=== PATIENT | male | born 1940 | race Two or more races ===

== ENCOUNTER 2024-09-03 12:29 | Inpatient (IN) | payer OTHER ==
[~2024-09-03] VITALS: Ht 167.6 cm; Wt 54.0 kg
[~2024-09-03 12:29] MED LIST: ACET-66 PO; CEPH-558 PO; DIVA-85 PO; GABA-1181 PO; HYDR25TA84 PO; PANT-31 PO; RISP1TAB48 PO; TRAZ-257 PO
[2024-09-03] MEDS ORDERED: NALOXONE HCL 1 MG/ML 2 ML SYRINGE ONE (12:37)
[2024-09-03 12:51] LABS: BASOPHILS % (AUTO) 0.2 % (0.0-2.0); EOSINOPHILS % (AUTO) 0.8 % (1.0-6.0); HEMATOCRIT 31.6 % (41-53); HEMOGLOBIN 10.5 g/dL (13.5-17.5); LYMPHOCYTES # (AUTO) 0.5 K/uL (1.0-4.8); LYMPHOCYTES % (AUTO) 14.3 % (22.0-44.0); MEAN CORPUSCULAR HGB CONC 33.1 G/dL (31.0-37.0); MEAN CORPUSCULAR VOLUME 94 fL (80-100); MONOCYTES # (AUTO) 0.2 K/uL (0.1-1.0); MONOCYTES % (AUTO) 6.6 % (2.0-9.0); NEUTROPHILS # (AUTO) 2.6 K/uL (1.8-7.7); NEUTROPHILS % (AUTO) 78.1 % (40.0-70.0); PLATELET COUNT (AUTO) 159 K/uL (150-450); RED BLOOD CELL COUNT(AUTO) 3.37 MIL/uL (4.50-5.90); RED CELL DISTRIBUTION WIDTH 22.9 % (11.5-14.5); WHITE BLOOD COUNT (AUTO) 3.3 K/uL (4.5-11.0)
[2024-09-03 13:00] LABS: ANION GAP 5 mmol/L (8-16); CALCIUM, TOTAL 8.7 mg/dL (8.8-10.5); CARBON DIOXIDE 32 mmol/L (22-29); CHLORIDE 110 mmol/L (98-107); CREATININE 0.95 mg/dL (0.60-1.30); GLOMERULAR FILTR. RATE CALC > 60 mL/min (>60); GLUCOSE,RANDOM 178 mg/dL (70-110); POTASSIUM 3.7 mmol/L (3.5-5.1); SODIUM SERUM 147 mmol/L (136-145); UREA NITROGEN, BLOOD 25 mg/dL (7-18)
[2024-09-03] MEDS ORDERED: ACETAMINOPHEN 325 MG TABLET PO PRN (13:00)
[2024-09-03] MEDS ORDERED: BISACODYL 10 MG RECTAL RECTAL SUPPOSITORY PR PRN (13:00)
[2024-09-03 13:03] LABS: PROTHROMBIN TIME 11.4 SEC (9.4-11.6)
[2024-09-03 13:10] LABS: ALANINE AMINOTRANSFERASE 27 U/L (12-78); ALBUMIN 2.6 g/dL (3.4-5.0); ALKALINE PHOSPHATASE 67 U/L (46-116); ASPARTATE AMINOTRANSFERASE 37 U/L (15-37); BILIRUBIN,TOTAL 0.2 mg/dL (0.1-1.0); TOTAL PROTEIN, SERUM 6.2 g/dL (6.4-8.2); TROPONIN I-HIGH SENSITIVITY 22 ng/L (<76)
[2024-09-03 13:13] LABS: RBC MORPHOLOGY COMMENT ABNORMAL RBC MORPH
[2024-09-03] MEDS: SODIUM CHLORIDE 0.45% 1,000 ML IV ONE (14:00)
[2024-09-03 14:08] LABS: APPEARANCE,URINE HAZY (CLEAR); BILIRUBIN,URINE NEGATIVE (NEGATIVE); COLOR,URINE LIGHT YELLOW (YELLOW); GLUCOSE, URINE (UA) NEGATIVE (NEGATIVE); KETONES,URINE NEGATIVE (NEGATIVE); LEUKOCYTE ESTERASE ,URINE LARGE (NEGATIVE); NITRATE,URINE POSITIVE (NEGATIVE); OCCULT BLOOD,URINE LARGE (NEGATIVE); PROTEIN,URINE 30-70 mg/dL (NEGATIVE); UROBILINOGEN,URINE <=1.0 mg/dL (<=1.0)
[2024-09-03 14:27] LABS: ALCOHOL, URINE DRUG SCREEN NEGATIVE (NEGATIVE); AMPHET/METH SCREEN,URINE NEGATIVE (NEGATIVE); BARBITURATE SCREEN, URINE NEGATIVE (NEGATIVE); BENZODIAZEPINES SCREEN,URINE NEGATIVE (NEGATIVE); CANNABINOID SCREEN,URINE NEGATIVE (NEGATIVE); COCAINE SCREEN,URINE NEGATIVE (NEGATIVE); METHADONE SCREEN, URINE NEGATIVE (NEGATIVE); OPIATE SCREEN,URINE NEGATIVE (NEGATIVE); PHENCYCLIDINE SCREEN,URINE NEGATIVE (NEGATIVE)
[2024-09-03 14:42] LABS: BACTERIA,URINE Many /HPF (None Seen); WBC,URINE >100 /HPF (0-5)
[2024-09-03] MEDS: SODIUM CHLORIDE 0.9% 1,850 ML IV ONE (14:51)
[2024-09-03 15:00] VITALS: PULSE 38; RESP 20; O2SAT 93
[2024-09-03] MEDS: CefTRIAXone 1 GM/DEXTROSE 50 ML IV SCH (15:16)
[2024-09-03] MEDS: THIAMINE 100 MG/ML 2 ML VIAL IVP ONE (15:37)
[2024-09-03] MEDS: SODIUM CHLORIDE 0.9% 1,000 ML IV ONE ×2 (16:23→17:14)
[2024-09-03] MEDS: SODIUM CHLORIDE 0.45% 1,000 ML IV SCH (18:26)
[2024-09-03] MEDS: DEXTROSE 50%-WATER 25 GM/50 ML SYRINGE IVP ONE (18:31)
[2024-09-03 18:58] LABS: TROPONIN I-HIGH SENSITIVITY 29 ng/L (<76)
[2024-09-03 19:40] LABS: LACTIC ACID 0.5 mmol/L (0.4-2.0)
[2024-09-03 19:56] LABS: GLUCOMETER DEV NAME(LOC) ER.7; GLUCOSE,POINT OF CARE 57 MG/DL (70-110)
[2024-09-03 19:56] LABS: GLUCOMETER DEV NAME(LOC) ER.7; GLUCOSE,POINT OF CARE 117 MG/DL (70-110)
[2024-09-03 21:00] VITALS: BP 149/84; PULSE 73; RESP 13; TEMP 93.4; O2SAT 100
[2024-09-03] MEDS: ETHYL ALCOHOL 62% ANTISEPTIC NASAL SANITIZER 0.6 ML AMPUL NASAL SCH (22:20)
[2024-09-03] MEDS: CHLORHEXIDINE GLUCONATE 2% TOWELETTE [2'S/6'S] TP SCH (22:20)
[2024-09-04] VITALS: BP 115/60; PULSE 61; RESP 14; TEMP 92.7; O2SAT 99
[2024-09-04 00:41] LABS: GLUCOMETER DEV NAME(LOC) ICUN.5; GLUCOSE,POINT OF CARE 53 MG/DL (70-110)
[2024-09-04] MEDS: DEXTROSE 5%-0.45% SODIUM CHL 1,000 ML IV SCH (00:42)
[2024-09-04] MEDS: DEXTROSE 50%-WATER 25 GM/50 ML SYRINGE IVP PRN (00:42)
[2024-09-04 04:00] VITALS: BP 133/77; PULSE 72; RESP 15; TEMP 95.2; O2SAT 98
[2024-09-04 05:01] LABS: GLUCOMETER DEV NAME(LOC) ICUN.5; GLUCOSE,POINT OF CARE 128 MG/DL (70-110)
[2024-09-04 06:11] LABS: GLUCOMETER DEV NAME(LOC) ICUN.5; GLUCOSE,POINT OF CARE 91 MG/DL (70-110)
[2024-09-04 06:28] LABS: BASOPHILS % (AUTO) 0.2 % (0.0-2.0); EOSINOPHILS % (AUTO) 0.5 % (1.0-6.0); HEMATOCRIT 29.8 % (41-53); HEMOGLOBIN 9.8 g/dL (13.5-17.5); LYMPHOCYTES # (AUTO) 0.3 K/uL (1.0-4.8); LYMPHOCYTES % (AUTO) 8.7 % (22.0-44.0); MEAN CORPUSCULAR HEMOGLOBIN 31.2 pg (26.0-34.0); MEAN CORPUSCULAR HGB CONC 32.9 G/dL (31.0-37.0); MEAN CORPUSCULAR VOLUME 95 fL (80-100); MONOCYTES # (AUTO) 0.3 K/uL (0.1-1.0); MONOCYTES % (AUTO) 8.9 % (2.0-9.0); NEUTROPHILS # (AUTO) 2.5 K/uL (1.8-7.7); NEUTROPHILS % (AUTO) 81.7 % (40.0-70.0); PLATELET COUNT (AUTO) 192 K/uL (150-450); RED BLOOD CELL COUNT(AUTO) 3.15 MIL/uL (4.50-5.90); RED CELL DISTRIBUTION WIDTH 23.2 % (11.5-14.5); WHITE BLOOD COUNT (AUTO) 3.1 K/uL (4.5-11.0)
[2024-09-04 06:44] LABS: ANION GAP 5 mmol/L (8-16); CALCIUM, TOTAL 7.6 mg/dL (8.8-10.5); CARBON DIOXIDE 29 mmol/L (22-29); CHLORIDE 114 mmol/L (98-107); CREATININE 0.91 mg/dL (0.60-1.30); GLOMERULAR FILTR. RATE CALC > 60 mL/min (>60); GLUCOSE,RANDOM 81 mg/dL (70-110); SODIUM SERUM 148 mmol/L (136-145); UREA NITROGEN, BLOOD 16 mg/dL (7-18)
[2024-09-04 06:54] LABS: TROPONIN I-HIGH SENSITIVITY 25 ng/L (<76)
[2024-09-04 08:00] VITALS: BP 131/66; PULSE 73; RESP 14; TEMP 97.1; O2SAT 98
[2024-09-04] MEDS: PANTOPRAZOLE SODIUM 40 MG/VIAL IVP SCH (08:22)
[2024-09-04] MEDS: HEPARIN SODIUM,PORCINE 5,000 UNITS/ML VIAL SQ SCH (08:23)
[2024-09-04 09:23] LABS: RBC MORPHOLOGY COMMENT ABNORMAL RBC MORPH
[2024-09-04 12:00] VITALS: BP 133/66; PULSE 79; RESP 19; TEMP 97.3; O2SAT 96
[2024-09-04 13:56] LABS: GLUCOMETER DEV NAME(LOC) ICUN.5; GLUCOSE,POINT OF CARE 92 MG/DL (70-110)
[2024-09-04] MEDS ORDERED: CefTRIAXone 1 GM/DEXTROSE 50 ML IV SCH (14:45)
[2024-09-04] MEDS: DEXTROSE 5%-WATER 500 ML IV ONE (15:28)
[2024-09-04] MEDS ORDERED: SODIUM CHLORIDE 0.9% 250 ML IV ONE (15:35)
[2024-09-04 16:00] VITALS: BP 121/66; PULSE 70; RESP 14; TEMP 96.4; O2SAT 97
[2024-09-04 20:00] VITALS: BP 155/66; PULSE 75; RESP 22; TEMP 97.8; O2SAT 99
[2024-09-04] MEDS: RisperiDONE 1 MG TABLET PO SCH (21:00)
[2024-09-04] MEDS: DIVALPROEX SODIUM 250 MG ER TABLET PO SCH (21:00)
[2024-09-05] VITALS: BP 142/59; PULSE 70; RESP 15; TEMP 97.2; O2SAT 97
[2024-09-05 04:00] VITALS: BP 134/66; PULSE 62; RESP 15; TEMP 96.7; O2SAT 96
[2024-09-05 06:01] LABS: ANION GAP 7 mmol/L (8-16); CALCIUM, TOTAL 7.7 mg/dL (8.8-10.5); CARBON DIOXIDE 28 mmol/L (22-29); CHLORIDE 110 mmol/L (98-107); CREATININE 1.15 mg/dL (0.60-1.30); GLOMERULAR FILTR. RATE CALC > 60 mL/min (>60); GLUCOSE,RANDOM 73 mg/dL (70-110); SODIUM SERUM 145 mmol/L (136-145); UREA NITROGEN, BLOOD 18 mg/dL (7-18)
[2024-09-05 06:02] LABS: BASOPHILS % (AUTO) 0.2 % (0.0-2.0); EOSINOPHILS % (AUTO) 0.3 % (1.0-6.0); HEMATOCRIT 29.6 % (41-53); HEMOGLOBIN 9.8 g/dL (13.5-17.5); LYMPHOCYTES # (AUTO) 0.9 K/uL (1.0-4.8); LYMPHOCYTES % (AUTO) 12.8 % (22.0-44.0); MEAN CORPUSCULAR HEMOGLOBIN 31.2 pg (26.0-34.0); MEAN CORPUSCULAR VOLUME 94 fL (80-100); MONOCYTES # (AUTO) 0.5 K/uL (0.1-1.0); MONOCYTES % (AUTO) 6.4 % (2.0-9.0); NEUTROPHILS # (AUTO) 5.7 K/uL (1.8-7.7); NEUTROPHILS % (AUTO) 80.3 % (40.0-70.0); PLATELET COUNT (AUTO) 181 K/uL (150-450); RED BLOOD CELL COUNT(AUTO) 3.13 MIL/uL (4.50-5.90); RED CELL DISTRIBUTION WIDTH 23.7 % (11.5-14.5); WHITE BLOOD COUNT (AUTO) 7.1 K/uL (4.5-11.0)
[2024-09-05 08:00] VITALS: BP 119/57; PULSE 58; RESP 17; TEMP 97.4; O2SAT 94
[2024-09-05 08:51] LABS: RBC MORPHOLOGY COMMENT ABNORMAL RBC MORPH
[2024-09-05 12:00] VITALS: BP 151/67; PULSE 63; TEMP 97.4
[2024-09-05 13:28] LABS: CHOL/HDL RATIO 1.8 (4.2-7.3); CHOLESTEROL 103 mg/dL (131-200); HDL CHOLESTEROL 58 mg/dL (40-60); LDL CHOL (CALC.) 32 mg/dL (0-130); TRIGLYCERIDES 65 mg/dL (15-150)
[2024-09-05 16:00] VITALS: BP 145/74; PULSE 60; RESP 15; TEMP 97.4; O2SAT 98
[2024-09-05 20:00] VITALS: BP 146/114; PULSE 70; PULSE 75; RESP 16; TEMP 96.7; O2SAT 97
[2024-09-05] MEDS: VALPROIC ACID 250 MG/5 ML SOLUTION UDCUP PO SCH (21:13)
[2024-09-06] VITALS: BP 167/79; PULSE 74; RESP 16; TEMP 96.3; O2SAT 98
[2024-09-06 04:00] VITALS: BP 116/50; PULSE 56; RESP 14; TEMP 97.7; O2SAT 97
[2024-09-06 06:33] LABS: CALCIUM, TOTAL 8.2 mg/dL (8.8-10.5); CREATININE 1.21 mg/dL (0.60-1.30); POTASSIUM 4.1 mmol/L (3.5-5.1)
[2024-09-06 06:36] LABS: BASOPHILS % (AUTO) 0.6 % (0.0-2.0); EOSINOPHILS % (AUTO) 2.2 % (1.0-6.0); HEMATOCRIT 27.8 % (41-53); HEMOGLOBIN 9.3 g/dL (13.5-17.5); LYMPHOCYTES # (AUTO) 1.3 K/uL (1.0-4.8); LYMPHOCYTES % (AUTO) 27.5 % (22.0-44.0); MEAN CORPUSCULAR HEMOGLOBIN 31.6 pg (26.0-34.0); MEAN CORPUSCULAR HGB CONC 33.6 G/dL (31.0-37.0); MEAN CORPUSCULAR VOLUME 94 fL (80-100); MONOCYTES # (AUTO) 0.4 K/uL (0.1-1.0); MONOCYTES % (AUTO) 7.5 % (2.0-9.0); NEUTROPHILS # (AUTO) 2.9 K/uL (1.8-7.7); NEUTROPHILS % (AUTO) 62.2 % (40.0-70.0); PLATELET COUNT (AUTO) 183 K/uL (150-450); RED BLOOD CELL COUNT(AUTO) 2.96 MIL/uL (4.50-5.90); RED CELL DISTRIBUTION WIDTH 23.3 % (11.5-14.5); WHITE BLOOD COUNT (AUTO) 4.7 K/uL (4.5-11.0)
[2024-09-06 07:05] LABS: RBC MORPHOLOGY COMMENT ABNORMAL RBC MORPH
[2024-09-06 08:41] VITALS: BP 152/66; PULSE 64; RESP 17; TEMP 97.9; O2SAT 96
[2024-09-06 11:53] VITALS: BP 154/52; PULSE 59; RESP 19; TEMP 98; O2SAT 96
[2024-09-06] MEDS: TraZODone HCL 50 MG TABLET PO SCH (13:34)
[2024-09-06] MEDS ORDERED: INSULIN LISPRO 100 UNITS/ML SQ PRN (16:15)
[2024-09-06 16:45] VITALS: BP 185/70; PULSE 56; RESP 18; TEMP 98; O2SAT 100
[2024-09-06] MEDS: HydrALAZINE HCL 25 MG TABLET PO SCH (17:11)
[2024-09-06] MEDS: CEPHALEXIN MONOHYDRATE 500 MG CAPSULE PO SCH (17:11)
[2024-09-06 20:13] VITALS: BP 176/113; PULSE 60; RESP 18; TEMP 98.1; O2SAT 99
[2024-09-06] MEDS: TraZODone HCL 100 MG TABLET PO SCH (21:21)
[2024-09-06 23:16] LABS: GLUCOMETER DEV NAME(LOC) 5S.2D; GLUCOSE,POINT OF CARE 129 MG/DL (70-110)
[2024-09-06 23:16] LABS: GLUCOMETER DEV NAME(LOC) 5S.2D; GLUCOSE,POINT OF CARE 62 MG/DL (70-110)
[2024-09-07 00:22] VITALS: BP 151/86; PULSE 59; RESP 19; TEMP 98; O2SAT 99
[2024-09-07 01:26] LABS: GLUCOMETER DEV NAME(LOC) 5S.2D; GLUCOSE,POINT OF CARE 135 MG/DL (70-110)
[2024-09-07 06:23] VITALS: BP 138/79; PULSE 56; TEMP 97.9; O2SAT 100
[2024-09-07 07:11] VITALS: BP 151/86; PULSE 60; RESP 18; TEMP 98; O2SAT 99
[2024-09-07 08:33] LABS: ANION GAP 7 mmol/L (8-16); CALCIUM, TOTAL 8.6 mg/dL (8.8-10.5); CARBON DIOXIDE 30 mmol/L (22-29); CHLORIDE 106 mmol/L (98-107); CREATININE 1.14 mg/dL (0.60-1.30); GLOMERULAR FILTR. RATE CALC > 60 mL/min (>60); GLUCOSE,RANDOM 84 mg/dL (70-110); SODIUM SERUM 142 mmol/L (136-145); UREA NITROGEN, BLOOD 27 mg/dL (7-18)
[2024-09-07 11:12] LABS: BASOPHILS % (AUTO) 0.4 % (0.0-2.0); EOSINOPHILS % (AUTO) 3.5 % (1.0-6.0); HEMATOCRIT 37.7 % (41-53); HEMOGLOBIN 11.7 g/dL (13.5-17.5); LYMPHOCYTES # (AUTO) 1.1 K/uL (1.0-4.8); LYMPHOCYTES % (AUTO) 23.6 % (22.0-44.0); MEAN CORPUSCULAR HEMOGLOBIN 30.7 pg (26.0-34.0); MEAN CORPUSCULAR HGB CONC 31.1 G/dL (31.0-37.0); MEAN CORPUSCULAR VOLUME 99 fL (80-100); MONOCYTES # (AUTO) 0.5 K/uL (0.1-1.0); NEUTROPHILS % (AUTO) 62.5 % (40.0-70.0); PLATELET COUNT (AUTO) 180 K/uL (150-450); RED BLOOD CELL COUNT(AUTO) 3.81 MIL/uL (4.50-5.90); RED CELL DISTRIBUTION WIDTH 23.3 % (11.5-14.5); WHITE BLOOD COUNT (AUTO) 4.7 K/uL (4.5-11.0)
[2024-09-07 12:00] VITALS: BP 152/70; PULSE 58; RESP 18; TEMP 98.2; O2SAT 97
[2024-09-07 15:36] LABS: GLUCOMETER DEV NAME(LOC) 5N.1D; GLUCOSE,POINT OF CARE 76 MG/DL (70-110)
[2024-09-07 16:06] VITALS: BP 138/76; PULSE 58; RESP 18; TEMP 98; O2SAT 98
[2024-09-07 19:46] VITALS: BP 182/79; PULSE 56; RESP 18; TEMP 98.1; O2SAT 100
[2024-09-07 21:26] LABS: GLUCOMETER DEV NAME(LOC) 5S.2D; GLUCOSE,POINT OF CARE 85 MG/DL (70-110)
[2024-09-07 21:35] LABS: GLUCOMETER DEV NAME(LOC) 5N.1D; GLUCOSE,POINT OF CARE 82 MG/DL (70-110)
[2024-09-08] VITALS (7 sets, daily range): BP systolic 146–177; BP diastolic 70–96; PULSE 54–79; RESP 17–19; TEMP 97.8–98; O2SAT 95–100
[2024-09-08 08:16] LABS: GLUCOMETER DEV NAME(LOC) 5S.2D; GLUCOSE,POINT OF CARE 82 MG/DL (70-110)
[2024-09-08] MEDS: DEXTROSE 40% LEMON 37.5 GM/TUBE GEL [15 GM GLUCOSE] PO PRN (13:18)
[2024-09-08] MEDS: AmLODIPine BESYLATE 10 MG TABLET PO SCH (13:18)
[2024-09-08 21:46] LABS: GLUCOMETER DEV NAME(LOC) 5N.1D; GLUCOSE,POINT OF CARE 157 MG/DL (70-110)
[2024-09-08 21:46] LABS: GLUCOMETER DEV NAME(LOC) 5N.1D; GLUCOSE,POINT OF CARE 103 MG/DL (70-110)
[2024-09-08 21:46] LABS: GLUCOMETER DEV NAME(LOC) 5N.1D; GLUCOSE,POINT OF CARE 87 MG/DL (70-110)
[2024-09-08 21:46] LABS: GLUCOMETER DEV NAME(LOC) 5N.1D; GLUCOSE,POINT OF CARE 50 MG/DL (70-110)
[2024-09-09 00:26] VITALS: BP 121/99; PULSE 64; RESP 18; O2SAT 100
[2024-09-09 04:00] VITALS: BP 132/91; PULSE 68; RESP 18; O2SAT 100
[2024-09-09 08:15] LABS: GLUCOMETER DEV NAME(LOC) 5N.2C; GLUCOSE,POINT OF CARE 78 MG/DL (70-110)
[2024-09-09 08:53] VITALS: BP 160/101; PULSE 110; RESP 18; TEMP 98; O2SAT 97
[2024-09-09 11:48] VITALS: BP 150/61; PULSE 67; RESP 18; TEMP 97.1; O2SAT 96
[2024-09-09 12:25] LABS: GLUCOMETER DEV NAME(LOC) 5N.1D; GLUCOSE,POINT OF CARE 65 MG/DL (70-110)
[2024-09-09 16:11] VITALS: BP 132/80; PULSE 77; RESP 18; TEMP 97.1; O2SAT 100
[2024-09-09 19:41] VITALS: BP 122/57; PULSE 67; RESP 18; TEMP 97.9; O2SAT 99
[2024-09-09] MEDS: GABAPENTIN 300 MG CAPSULE PO SCH (21:14)
[2024-09-09] MEDS: VALPROIC ACID 250 MG/5 ML SOLUTION UDCUP PO SCH (21:15)
[2024-09-10] VITALS (7 sets, daily range): BP systolic 105–136; BP diastolic 52–78; PULSE 49–86; RESP 17–19; TEMP 97.4–98; O2SAT 92–100
[2024-09-10 00:51] LABS: GLUCOMETER DEV NAME(LOC) 5N.2C; GLUCOSE,POINT OF CARE 88 MG/DL (70-110)
[2024-09-10 00:51] LABS: GLUCOMETER DEV NAME(LOC) 5N.2C; GLUCOSE,POINT OF CARE 94 MG/DL (70-110)
[2024-09-10 10:27] LABS: GLUCOMETER DEV NAME(LOC) 5N.2C; GLUCOSE,POINT OF CARE 61 MG/DL (70-110)
[2024-09-10 10:27] LABS: GLUCOMETER DEV NAME(LOC) 5N.1D; GLUCOSE,POINT OF CARE 168 MG/DL (70-110)
[2024-09-10 16:36] LABS: GLUCOMETER DEV NAME(LOC) 5N.2C; GLUCOSE,POINT OF CARE 83 MG/DL (70-110)
[2024-09-10 21:00] LABS: GLUCOMETER DEV NAME(LOC) 5N.1D; GLUCOSE,POINT OF CARE 80 MG/DL (70-110)
[2024-09-10 21:00] LABS: GLUCOMETER DEV NAME(LOC) 5N.1D; GLUCOSE,POINT OF CARE 103 MG/DL (70-110)
[2024-09-11 04:48] VITALS: BP 116/68; PULSE 68; RESP 17; TEMP 97.9; O2SAT 95
[2024-09-11 06:05] LABS: GLUCOMETER DEV NAME(LOC) 5N.1D; GLUCOSE,POINT OF CARE 77 MG/DL (70-110)
[2024-09-11 08:00] VITALS: BP 104/60; PULSE 54; RESP 18; TEMP 98; O2SAT 96
[2024-09-11 11:00] LABS: GLUCOMETER DEV NAME(LOC) 5N.1D; GLUCOSE,POINT OF CARE 83 MG/DL (70-110)
[2024-09-11 11:53] VITALS: BP 100/64; PULSE 60; RESP 18; TEMP 98; O2SAT 96
[2024-09-11 13:10] LABS: GLUCOMETER DEV NAME(LOC) 5N.2C; GLUCOSE,POINT OF CARE 73 MG/DL (70-110)
[2024-09-11 16:13] VITALS: BP 126/91; PULSE 58; RESP 18; TEMP 98.1; O2SAT 100
[2024-09-11 20:30] VITALS: BP 111/61; PULSE 55; RESP 18; O2SAT 100
[2024-09-12] VITALS (10 sets, daily range): BP systolic 88–151; BP diastolic 53–87; PULSE 42–78; RESP 18–19; TEMP 97.9–98.2; O2SAT 96–100
[2024-09-12 03:46] LABS: GLUCOMETER DEV NAME(LOC) 5N.2C; GLUCOSE,POINT OF CARE 106 MG/DL (70-110)
[2024-09-12 03:46] LABS: GLUCOMETER DEV NAME(LOC) 5N.2C; GLUCOSE,POINT OF CARE 104 MG/DL (70-110)
[2024-09-12] MEDS: DEXTROSE 50%-WATER 25 GM/50 ML SYRINGE IVP PRN (04:12)
[2024-09-12 06:21] LABS: GLUCOMETER DEV NAME(LOC) 5N.2C; GLUCOSE,POINT OF CARE 59 MG/DL (70-110)
[2024-09-12 06:21] LABS: GLUCOMETER DEV NAME(LOC) 5N.2C; GLUCOSE,POINT OF CARE 180 MG/DL (70-110)
[2024-09-12 06:21] LABS: GLUCOMETER DEV NAME(LOC) 5N.2C; GLUCOSE,POINT OF CARE 118 MG/DL (70-110)
[2024-09-12] MEDS: AmLODIPine BESYLATE 5 MG TABLET PO SCH (08:03)
[2024-09-12 14:36] LABS: GLUCOMETER DEV NAME(LOC) 5N.2C; GLUCOSE,POINT OF CARE 147 MG/DL (70-110)
[2024-09-12 14:36] LABS: GLUCOMETER DEV NAME(LOC) 5N.2C; GLUCOSE,POINT OF CARE 68 MG/DL (70-110)
[2024-09-13] VITALS (8 sets, daily range): BP systolic 97–138; BP diastolic 48–87; PULSE 40–70; RESP 16–18; TEMP 97.5–98.5; O2SAT 94–98
[2024-09-13 00:41] LABS: GLUCOMETER DEV NAME(LOC) 5S.2D; GLUCOSE,POINT OF CARE 92 MG/DL (70-110)
[2024-09-13 00:41] LABS: GLUCOMETER DEV NAME(LOC) 5S.2D; GLUCOSE,POINT OF CARE 161 MG/DL (70-110)
[2024-09-13 07:31] LABS: GLUCOMETER DEV NAME(LOC) 5S.2D; GLUCOSE,POINT OF CARE 62 MG/DL (70-110)
[2024-09-13 07:31] LABS: GLUCOMETER DEV NAME(LOC) 5S.2D; GLUCOSE,POINT OF CARE 144 MG/DL (70-110)
[2024-09-13 09:14] LABS: CALCIUM, TOTAL 8.7 mg/dL (8.8-10.5); CREATININE 1.43 mg/dL (0.60-1.30); POTASSIUM 4.6 mmol/L (3.5-5.1)
[2024-09-13 11:40] LABS: COVID AG,FIA SOURCE NASAL SWAB
[2024-09-13 12:33] LABS: SARS-COV2 (COVID) ANTIGEN,FIA Negative (Negative)
[2024-09-13 14:17] LABS: BASOPHILS % (AUTO) 0.2 % (0.0-2.0); EOSINOPHILS % (AUTO) 2.8 % (1.0-6.0); HEMATOCRIT 33.7 % (41-53); HEMOGLOBIN 10.9 g/dL (13.5-17.5); LYMPHOCYTES # (AUTO) 0.5 K/uL (1.0-4.8); LYMPHOCYTES % (AUTO) 13.1 % (22.0-44.0); MEAN CORPUSCULAR HEMOGLOBIN 30.9 pg (26.0-34.0); MEAN CORPUSCULAR HGB CONC 32.4 G/dL (31.0-37.0); MEAN CORPUSCULAR VOLUME 95 fL (80-100); MONOCYTES # (AUTO) 0.2 K/uL (0.1-1.0); MONOCYTES % (AUTO) 6.9 % (2.0-9.0); NEUTROPHILS # (AUTO) 2.7 K/uL (1.8-7.7); PLATELET COUNT (AUTO) 137 K/uL (150-450); RED BLOOD CELL COUNT(AUTO) 3.54 MIL/uL (4.50-5.90); WHITE BLOOD COUNT (AUTO) 3.6 K/uL (4.5-11.0)
[2024-09-13 23:31] LABS: GLUCOMETER DEV NAME(LOC) 5S.2D; GLUCOSE,POINT OF CARE 98 MG/DL (70-110)
[2024-09-13 23:31] LABS: GLUCOMETER DEV NAME(LOC) 5S.2D; GLUCOSE,POINT OF CARE 71 MG/DL (70-110)
== END 2024-09-13 16:18 | DRG 871 ==
LOC: EMS 12:29 → EDH 14:18 → EDBD 14:18 → ICU 20:48 → 5S 09-06 06:30
PROVIDERS: ADMIT Internal Medicine; ATTEND Internal Medicine
PROC: 5A0935A Assistance with Respiratory Ventilation, Less than 24 Consecutive Hours, High Flow/Velocity Cannula (ICD-10-PCS; principal; 2024-09-03)
DX: A41.9 Sepsis, unspecified organism (principal); G93.41 Metabolic encephalopathy; N39.0 Urinary tract infection, site not specified; E87.1 Hypo-osmolality and hyponatremia; E44.0 Moderate protein-calorie malnutrition; E87.0 Hyperosmolality and hypernatremia; Z68.1 Body mass index [BMI] 19.9 or less, adult; Z20.822 Contact with and (suspected) exposure to COVID-19; R65.20 Severe sepsis without septic shock; I10 Essential (primary) hypertension; E16.2 Hypoglycemia, unspecified; Z53.20 Procedure and treatment not carried out because of patient's decision for unspecified reasons; Z79.899 Other long term (current) drug therapy
CPT/HCPCS: 70496; 70498; 71045; 80048; 80053; 80061; 80307; 81001; 82948; 82962; 83605; 84484; 85025; 85610; 85730; 86850; 86900; 86901; 87040; 87077; 87081; 87086; 87186; 92526; 92610; 93005; 93306; 97116; 97162; 97530; 99291; G0378; J0696; J1644; J2310; J2470; J3411; J7050; J7060; 36415-L1; 36415-TC; 70450; 70450-TC

== ENCOUNTER 2024-09-13 09:55 | Inpatient (IN) | payer OTHER ==
[~2024-09-13] VITALS: Ht 167.6 cm; Wt 58.1 kg
[2024-09-13] MEDS ORDERED: ZOLPIDEM TARTRATE 10 MG TABLET PO PRN (12:30)
[2024-09-13 16:51] VITALS: BP_SYST 101; BP_SYST 95; BP_DIAS 55; BP_DIAS 59; PULSE 56; RESP 16; TEMP 96.9; O2SAT 96
[2024-09-13] MEDS: GABAPENTIN 300 MG CAPSULE PO SCH (17:00)
[2024-09-13] MEDS: VALPROIC ACID 250 MG CAPSULE PO SCH (21:35)
[2024-09-13 22:24] VITALS: BP 96/50; PULSE 58; RESP 16; TEMP 96.9; O2SAT 98
[2024-09-14 08:01] LABS: CHOL/HDL RATIO 2.5 (4.2-7.3)
[2024-09-14 08:28] LABS: HEMOGLOBIN A1C 5.1 % (3.8-5.6)
[2024-09-14] MEDS: AmLODIPine BESYLATE 5 MG TABLET PO SCH (09:00)
[2024-09-14 09:53] VITALS: BP 113/42; PULSE 61; RESP 17; TEMP 96.6; O2SAT 98
[2024-09-14 10:30] VITALS: BP 127/60; PULSE 63; RESP 18; TEMP 96.8; O2SAT 96
[2024-09-14 21:15] VITALS: BP 90/55; PULSE 55; RESP 18; TEMP 98.2; O2SAT 98
[2024-09-15 04:56] VITALS: BP 112/65; PULSE 62; RESP 19; TEMP 97.9; O2SAT 98
[2024-09-15] MEDS: LORazepam 2 MG TABLET PO PRN (04:56)
[2024-09-15 05:51] VITALS: BP 105/61; PULSE 65; RESP 18; TEMP 98.3; O2SAT 97
[2024-09-15] MEDS: HALOPERIDOL 5 MG TABLET PO PRN (05:51)
[2024-09-15 08:15] LABS: GLUCOMETER DEV NAME(LOC) 3E.C; GLUCOSE,POINT OF CARE 69 MG/DL (70-110)
== END 2024-09-15 11:15 | disposition short-term general hospital (02) | DRG 885 ==
LOC: 3EI 16:20
PROVIDERS: ADMIT Psychiatry & Neurology Psychiatry; ATTEND Psychiatry & Neurology Psychiatry
DX: F20.9 Schizophrenia, unspecified (principal); K21.9 Gastro-esophageal reflux disease without esophagitis; I10 Essential (primary) hypertension; Z87.440 Personal history of urinary (tract) infections
CPT/HCPCS: 80061; 82962; 83036; 87081

== ENCOUNTER 2024-09-15 08:26 | Inpatient (IN) | payer MEDICARE, OTHER ==
[~2024-09-15] VITALS: Ht 172.7 cm; Wt 59.9 kg
[~2024-09-15 08:26] MED LIST changes: -CEPH-558 PO
[2024-09-15] MEDS ORDERED: DEXTROSE 50%-WATER 25 GM/50 ML SYRINGE IVP ONE (08:32)
[2024-09-15] MEDS: NALOXONE HCL 1 MG/ML 2 ML SYRINGE IVP ONE (08:33)
[2024-09-15] MEDS: DEXTROSE 50%-WATER 25 GM/50 ML SYRINGE IVP ONE (08:34)
[2024-09-15 09:01] LABS: BASOPHILS % (AUTO) 0.3 % (0.0-2.0); EOSINOPHILS % (AUTO) 1.6 % (1.0-6.0); HEMATOCRIT 33.4 % (41-53); HEMOGLOBIN 10.8 g/dL (13.5-17.5); LYMPHOCYTES # (AUTO) 0.4 K/uL (1.0-4.8); LYMPHOCYTES % (AUTO) 10.4 % (22.0-44.0); MEAN CORPUSCULAR HEMOGLOBIN 30.9 pg (26.0-34.0); MEAN CORPUSCULAR HGB CONC 32.4 G/dL (31.0-37.0); MEAN CORPUSCULAR VOLUME 95 fL (80-100); MONOCYTES # (AUTO) 0.1 K/uL (0.1-1.0); MONOCYTES % (AUTO) 2.5 % (2.0-9.0); NEUTROPHILS # (AUTO) 3.5 K/uL (1.8-7.7); PLATELET COUNT (AUTO) 115 K/uL (150-450); RED BLOOD CELL COUNT(AUTO) 3.51 MIL/uL (4.50-5.90); RED CELL DISTRIBUTION WIDTH 23.5 % (11.5-14.5); WHITE BLOOD COUNT (AUTO) 4.1 K/uL (4.5-11.0)
[2024-09-15 09:08] LABS: NEUTROPHILS % (AUTO) 85.2 % (40.0-70.0)
[2024-09-15 09:12] LABS: ANION GAP 6 mmol/L (8-16); CALCIUM, TOTAL 8.6 mg/dL (8.8-10.5); CARBON DIOXIDE 30 mmol/L (22-29); CHLORIDE 110 mmol/L (98-107); CREATININE 1.57 mg/dL (0.60-1.30); GLOMERULAR FILTR. RATE CALC 43 mL/min (>60); GLUCOSE,RANDOM 168 mg/dL (70-110); POTASSIUM 3.9 mmol/L (3.5-5.1); SODIUM SERUM 146 mmol/L (136-145); UREA NITROGEN, BLOOD 61 mg/dL (7-18)
[2024-09-15 09:17] LABS: CREATINE KINASE, TOTAL ONLY 47 U/L (39-308)
[2024-09-15 09:19] LABS: LACTIC ACID 0.9 mmol/L (0.4-2.0)
[2024-09-15 09:25] LABS: TROPONIN I-HIGH SENSITIVITY 15 ng/L (<76)
[2024-09-15 09:28] LABS: AMMONIA < 10 umol/L (11-32)
[2024-09-15] MEDS ORDERED: ONDANSETRON HCL 4 MG/2 ML VIAL IVP PRN (10:00)
[2024-09-15] MEDS ORDERED: ACETAMINOPHEN 325 MG TABLET PO PRN (10:00)
[2024-09-15] MEDS ORDERED: BISACODYL 10 MG RECTAL RECTAL SUPPOSITORY PR PRN (10:00)
[2024-09-15] MEDS: SODIUM CHLORIDE 0.9% 1,000 ML IV ONE ×2 (10:49→21:24)
[2024-09-15 11:16] LABS: GLUCOMETER DEV NAME(LOC) ER.7; GLUCOSE,POINT OF CARE 116 MG/DL (70-110)
[2024-09-15] MEDS: DEXTROSE 5%-0.9% SODIUM CHL 1,000 ML IV ONE (16:12)
[2024-09-15 16:25] LABS: GLUCOMETER DEV NAME(LOC) ER.7; GLUCOSE,POINT OF CARE 78 MG/DL (70-110)
[2024-09-15 16:37] VITALS: BP 124/63; PULSE 82; RESP 18; O2SAT 91
[2024-09-15] MEDS: HEPARIN SODIUM,PORCINE 5,000 UNITS/ML VIAL SQ SCH (18:36)
[2024-09-15 19:42] LABS: BASOPHILS % (AUTO) 0.3 % (0.0-2.0); EOSINOPHILS % (AUTO) 1.1 % (1.0-6.0); HEMATOCRIT 34.6 % (41-53); HEMOGLOBIN 10.9 g/dL (13.5-17.5); LYMPHOCYTES # (AUTO) 0.3 K/uL (1.0-4.8); MEAN CORPUSCULAR HEMOGLOBIN 30.1 pg (26.0-34.0); MEAN CORPUSCULAR HGB CONC 31.6 G/dL (31.0-37.0); MEAN CORPUSCULAR VOLUME 95 fL (80-100); MONOCYTES % (AUTO) 2.5 % (2.0-9.0); NEUTROPHILS # (AUTO) 1.1 K/uL (1.8-7.7); NEUTROPHILS % (AUTO) 73.1 % (40.0-70.0); PLATELET COUNT (AUTO) 102 K/uL (150-450); RED BLOOD CELL COUNT(AUTO) 3.62 MIL/uL (4.50-5.90); RED CELL DISTRIBUTION WIDTH 23.2 % (11.5-14.5); WHITE BLOOD COUNT (AUTO) 1.5 K/uL (4.5-11.0)
[2024-09-15 19:53] LABS: ANION GAP 7 mmol/L (8-16); CALCIUM, TOTAL 8.3 mg/dL (8.8-10.5); CARBON DIOXIDE 31 mmol/L (22-29); CHLORIDE 112 mmol/L (98-107); CREATININE 1.42 mg/dL (0.60-1.30); GLOMERULAR FILTR. RATE CALC 48 mL/min (>60); GLUCOSE,RANDOM 123 mg/dL (70-110); POTASSIUM 3.3 mmol/L (3.5-5.1); SODIUM SERUM 150 mmol/L (136-145); UREA NITROGEN, BLOOD 57 mg/dL (7-18)
[2024-09-15 19:59] LABS: TROPONIN I-HIGH SENSITIVITY 14 ng/L (<76)
[2024-09-15 20:00] VITALS: BP 96/46; PULSE 42; RESP 13; RESP 26; TEMP 97.2; O2SAT 97
[2024-09-15 20:01] LABS: RBC MORPHOLOGY COMMENT ABNORMAL RBC MORPH
[2024-09-15 20:19] LABS: THYROID STIMULATING HORMONE 1.78 uIU/mL (0.36-3.74)
[2024-09-15 20:22] LABS: ABG BASE EXCESS -2.1 mmol/L (-2.0-3.0); ABG HCO3 22.2 mmol/L (21.0-28.0); ABG OXYHEMOGLOBIN 88.8 % (94.0-98.0); ABG PCO2 52 mmHg (32.0-48.0); ABG PH 7.289 (7.350-7.450); ABG TOTAL HEMOGLOBIN 11.6 G/dL (13.5-17.5); ALLEN TEST, BLOOD GAS Positive; PO2, ARTERIAL BG 62.8 mmHg (83.0-108.0); SITE, BLOOD GAS LFT RADIAL; SOURCE, BLOOD GAS ARTERIAL; TEMPERATURE, FAHRENHEIT, BG 97.2 FAHREN (96.0-98.6)
[2024-09-15 20:23] LABS: ABG A-A DIFF O2 600.1 mmHg (10-20.0); ABG CARBOXYHEMOGLOBIN 0.3 % (0.5-1.5); ABG METHEMOGLOBIN 0.8 % (0.0-1.5); ABG OXYGEN CONTENT 14.5 mL/dL (15.0-23.0); ABG OXYGEN SATURATION 89.8 % (94.0-98.0); O2 DEVICE,BLOOD GAS NON REBREATHER (ROOM AIR)
[2024-09-15 20:26] VITALS: PULSE 41; RESP 25; O2SAT 96
[2024-09-15] MEDS: FLUMAZENIL 0.1 MG/ML 5 ML VIAL IVP ONE ×2 (20:30→23:44)
[2024-09-15] MEDS: VANCOMYCIN HCL 1 GM/D5% WATER 200 ML IV ONE (20:52)
[2024-09-15 20:55] LABS: GLUCOMETER DEV NAME(LOC) 5N.1D; GLUCOSE,POINT OF CARE 172 MG/DL (70-110)
[2024-09-15] MEDS ORDERED: SODIUM CHLORIDE 0.9% 500 ML IV ONE (20:55)
[2024-09-15 21:09] LABS: ABG BASE EXCESS -2.8 mmol/L (-2.0-3.0); ABG CARBOXYHEMOGLOBIN 0.9 % (0.5-1.5); ABG HCO3 21.9 mmol/L (21.0-28.0); ABG METHEMOGLOBIN 0.8 % (0.0-1.5); ABG OXYGEN CONTENT 16.8 mL/dL (15.0-23.0); ABG OXYGEN SATURATION 98.9 % (94.0-98.0); ABG OXYHEMOGLOBIN 97.8 % (94.0-98.0); ABG PCO2 49 mmHg (32.0-48.0); ABG PH 7.302 (7.350-7.450); ALLEN TEST, BLOOD GAS Positive; PO2, ARTERIAL BG 141.5 mmHg (83.0-108.0); SITE, BLOOD GAS LFT RADIAL; SOURCE, BLOOD GAS ARTERIAL; TEMPERATURE, FAHRENHEIT, BG 97.2 FAHREN (96.0-98.6)
[2024-09-15 21:10] LABS: ABG A-A DIFF O2 524.9 mmHg (10-20.0); INSPIRATORY TIME, BG 0.9 SEC; O2 DEVICE,BLOOD GAS BIPAP (ROOM AIR); SPONTANEOUS VT, BG 424 ml; VENT MODE, BG NIPPV (ROOM AIR)
[2024-09-15] MEDS: PIPERACILLIN SODIUM/TAZOBACTAM 2.25 GM in DEXTROSE 5%-WATER 50 ML IV SCH (21:29)
[2024-09-15] MEDS: RINGERS SOLUTION,LACTATED 1,000 ML IV SCH (21:29)
[2024-09-15] MEDS ORDERED: RINGERS SOLUTION,LACTATED 1,000 ML IV SCH (21:30)
[2024-09-15 22:33] VITALS: PULSE 46; RESP 22; O2SAT 97
[2024-09-16] VITALS (14 sets, daily range): BP systolic 91–116; BP diastolic 42–64; PULSE 38–101; RESP 12–31; TEMP 92–98.1; O2SAT 91–100
[2024-09-16 06:55] LABS: BASOPHILS % (AUTO) 0.5 % (0.0-2.0); EOSINOPHILS % (AUTO) 0.8 % (1.0-6.0); HEMATOCRIT 31.6 % (41-53); HEMOGLOBIN 10.2 g/dL (13.5-17.5); LYMPHOCYTES # (AUTO) 0.1 K/uL (1.0-4.8); LYMPHOCYTES % (AUTO) 12.4 % (22.0-44.0); MEAN CORPUSCULAR HEMOGLOBIN 30.8 pg (26.0-34.0); MEAN CORPUSCULAR HGB CONC 32.2 G/dL (31.0-37.0); MEAN CORPUSCULAR VOLUME 96 fL (80-100); MONOCYTES % (AUTO) 4.2 % (2.0-9.0); NEUTROPHILS # (AUTO) 0.8 K/uL (1.8-7.7); NEUTROPHILS % (AUTO) 82.1 % (40.0-70.0); PLATELET COUNT (AUTO) 85 K/uL (150-450); RED BLOOD CELL COUNT(AUTO) 3.31 MIL/uL (4.50-5.90); RED CELL DISTRIBUTION WIDTH 23.3 % (11.5-14.5)
[2024-09-16 06:57] LABS: CALCIUM, TOTAL 8.5 mg/dL (8.8-10.5); CREATININE 1.45 mg/dL (0.60-1.30); POTASSIUM 3.4 mmol/L (3.5-5.1)
[2024-09-16 07:16] LABS: RBC MORPHOLOGY COMMENT ABNORMAL RBC MORPH
[2024-09-16] MEDS: FLUMAZENIL 0.1 MG/ML 5 ML VIAL IVP ONE ×2 (08:10→16:39)
[2024-09-16] MEDS: PANTOPRAZOLE SODIUM 40 MG/VIAL IVP SCH (08:12)
[2024-09-16] MEDS: VANCOMYCIN HCL 1 GM/D5% WATER 200 ML IV SCH (08:12)
[2024-09-16] MEDS: SODIUM CHLORIDE 0.45% 1,000 ML IV ONE (09:05)
[2024-09-16] MEDS ORDERED: DOPamine 400MG/D5W[STANDARD] 250 ML IV ONE (09:47)
[2024-09-16] MEDS: DOPamine 400MG/D5W[STANDARD] 250 ML IV PRN (09:55)
[2024-09-16] MEDS ORDERED: DEXTROSE 5%-WATER 1,000 ML IV SCH (12:00)
[2024-09-16] MEDS: DEXTROSE 5%-WATER 500 ML IV SCH (13:05)
[2024-09-16] MEDS: POTASSIUM CHL 10 MEQ/WATER 50 ML IV SCH (14:26)
[2024-09-16] MEDS ORDERED: SODIUM CHLORIDE 0.9% 250 ML IV ONE (15:18)
[2024-09-16] MEDS ORDERED: NOREPINEPHRINE 8 MG/0.9 % NACL 250 ML IV ONE (15:25)
[2024-09-16] MEDS: NOREPINEPHRINE 8 MG/0.9 % NACL 250 ML IV PRN (15:42)
[2024-09-16 17:07] LABS: BASOPHILS % (AUTO) 0.3 % (0.0-2.0); EOSINOPHILS % (AUTO) 0.3 % (1.0-6.0); HEMATOCRIT 34.7 % (41-53); LYMPHOCYTES # (AUTO) 0.2 K/uL (1.0-4.8); LYMPHOCYTES % (AUTO) 8.3 % (22.0-44.0); MEAN CORPUSCULAR HEMOGLOBIN 29.9 pg (26.0-34.0); MEAN CORPUSCULAR HGB CONC 31.8 G/dL (31.0-37.0); MEAN CORPUSCULAR VOLUME 94 fL (80-100); MONOCYTES # (AUTO) 0.1 K/uL (0.1-1.0); MONOCYTES % (AUTO) 2.9 % (2.0-9.0); NEUTROPHILS # (AUTO) 2.1 K/uL (1.8-7.7); PLATELET COUNT (AUTO) 140 K/uL (150-450); RED BLOOD CELL COUNT(AUTO) 3.68 MIL/uL (4.50-5.90); RED CELL DISTRIBUTION WIDTH 23.9 % (11.5-14.5); WHITE BLOOD COUNT (AUTO) 2.4 K/uL (4.5-11.0)
[2024-09-16 17:08] LABS: NEUTROPHILS % (AUTO) 88.2 % (40.0-70.0)
[2024-09-16 17:15] LABS: ALBUMIN 1.8 g/dL (3.4-5.0); BILIRUBIN,TOTAL 0.3 mg/dL (0.1-1.0); CALCIUM, TOTAL 8.1 mg/dL (8.8-10.5); CREATININE 1.97 mg/dL (0.60-1.30); POTASSIUM 4.7 mmol/L (3.5-5.1); TOTAL PROTEIN, SERUM 5.6 g/dL (6.4-8.2)
[2024-09-16 17:21] LABS: RBC MORPHOLOGY COMMENT ABNORMAL RBC MORPH
[2024-09-16] MEDS ORDERED: DEXTROSE 50%-WATER 25 GM/50 ML SYRINGE IVP ONE (17:31)
[2024-09-16] MEDS: DEXTROSE 50%-WATER 25 GM/50 ML SYRINGE IVP PRN (17:36)
[2024-09-16 17:57] LABS: ABG BASE EXCESS -5.1 mmol/L (-2.0-3.0); ABG CARBOXYHEMOGLOBIN 0.5 % (0.5-1.5); ABG HCO3 20.8 mmol/L (21.0-28.0); ABG METHEMOGLOBIN 0.3 % (0.0-1.5); ABG OXYGEN CONTENT 14.3 mL/dL (15.0-23.0); ABG OXYGEN SATURATION 92.7 % (94.0-98.0); ABG PCO2 32 mmHg (32.0-48.0); ABG PH 7.407 (7.350-7.450); PO2, ARTERIAL BG 64.6 mmHg (83.0-108.0); SOURCE, BLOOD GAS ARTERIAL; TEMPERATURE, FAHRENHEIT, BG 98.1 FAHREN (96.0-98.6)
[2024-09-16 17:58] LABS: ALLEN TEST, BLOOD GAS Positive; INSPIRATORY TIME, BG 0.9 SEC; O2 DEVICE,BLOOD GAS BIPAP (ROOM AIR); PRESSURE SUPPORT, BG 10 cm H2O; SITE, BLOOD GAS LFT RADIAL; SPONTANEOUS VT, BG 710 ml
[2024-09-16] MEDS ORDERED: ETOMIDATE 2 MG/ML 10 ML VIAL ONE (18:04)
[2024-09-16] MEDS ORDERED: ROCURONIUM BROMIDE 10 MG/ML 5 ML VIAL ONE (18:05)
[2024-09-16 18:15] LABS: APPEARANCE,URINE CLEAR (CLEAR); BILIRUBIN,URINE NEGATIVE (NEGATIVE); COLOR,URINE LIGHT YELLOW (YELLOW); GLUCOSE, URINE (UA) NEGATIVE (NEGATIVE); KETONES,URINE NEGATIVE (NEGATIVE); LEUKOCYTE ESTERASE ,URINE LARGE (NEGATIVE); NITRATE,URINE POSITIVE (NEGATIVE); OCCULT BLOOD,URINE NEGATIVE (NEGATIVE); PH,URINE 6.5 (5.0-8.0); PROTEIN,URINE 30-70 mg/dL (NEGATIVE); SPECIFIC GRAVITIY, URINE 1.013 (1.003-1.030); UROBILINOGEN,URINE <=1.0 mg/dL (<=1.0)
[2024-09-16 18:39] LABS: BACTERIA,URINE Moderate /HPF (None Seen); MUCUS,URINE Few LPF (None Seen); RBC,URINE 0-2 /HPF (0-2); SQUAMOUS EPITHELIAL CELL,UR Few /LPF (None Seen)
[2024-09-16 18:51] LABS: GLUCOMETER DEV NAME(LOC) ICUN.5; GLUCOSE,POINT OF CARE 156 MG/DL (70-110)
[2024-09-16 19:47] LABS: ABG BASE EXCESS -9.2 mmol/L (-2.0-3.0); ABG CARBOXYHEMOGLOBIN 0.2 % (0.5-1.5); ABG HCO3 17.2 mmol/L (21.0-28.0); ABG METHEMOGLOBIN 0.1 % (0.0-1.5); ABG OXYGEN CONTENT 14.2 mL/dL (15.0-23.0); ABG OXYGEN SATURATION 87.2 % (94.0-98.0); ABG OXYHEMOGLOBIN 86.9 % (94.0-98.0); ABG PCO2 45 mmHg (32.0-48.0); ABG TOTAL HEMOGLOBIN 11.6 G/dL (13.5-17.5); PO2, ARTERIAL BG 64.5 mmHg (83.0-108.0); SOURCE, BLOOD GAS ARTERIAL; TEMPERATURE, FAHRENHEIT, BG 98.6 FAHREN (96.0-98.6)
[2024-09-16 19:48] LABS: ALLEN TEST, BLOOD GAS Positive; O2 DEVICE,BLOOD GAS VENTILATOR (ROOM AIR); PEEP,BG 5 cm H2O; SITE, BLOOD GAS RT RADIAL; VT, ABG 430 ml
[2024-09-16] MEDS: ROCURONIUM BROMIDE 10 MG/ML 5 ML VIAL IVP ONE (20:00)
[2024-09-16] MEDS: ETOMIDATE 2 MG/ML 10 ML VIAL IVP ONE (20:00)
[2024-09-16] MEDS ORDERED: SODIUM CHLORIDE 0.9% 500 ML IV ONE (21:09)
[2024-09-16] MEDS: *CLINICAL-MEROPENEM DOSING CLINICAL ONE (21:19)
[2024-09-16] MEDS: HYDROCORTISONE SOD SUCC 250 MG/2 ML VIAL IVP ONE (21:44)
[2024-09-16] MEDS: MEROPENEM 500 MG in SODIUM CHLORIDE 0.9% 50 ML IV SCH (21:50)
[2024-09-16] MEDS: VASOPRESSIN 40 UNITS in DEXTROSE 5%-WATER 98 ML IV PRN (22:55)
[2024-09-16] MEDS: ETHYL ALCOHOL 62% ANTISEPTIC NASAL SANITIZER 0.6 ML AMPUL NASAL SCH (23:23)
[2024-09-17] VITALS (13 sets, daily range): BP systolic 109–144; BP diastolic 47–74; PULSE 57–100; RESP 15–43; TEMP 95.9–98.6; O2SAT 95–100
[2024-09-17 02:45] LABS: GLUCOMETER DEV NAME(LOC) ICU.S6; GLUCOSE,POINT OF CARE 55 MG/DL (70-110)
[2024-09-17 04:51] LABS: GLUCOMETER DEV NAME(LOC) ICU.S6; GLUCOSE,POINT OF CARE 87 MG/DL (70-110)
[2024-09-17 05:46] LABS: GLUCOMETER DEV NAME(LOC) ICUN.5; GLUCOSE,POINT OF CARE 135 MG/DL (70-110)
[2024-09-17] MEDS: FentaNYL CIT 1000MCG/0.9% NACL 100 ML IV PRN (06:16)
[2024-09-17] MEDS: PROPOFOL 1000 MG/ISO-OSM 100 ML IV PRN (06:18)
[2024-09-17 06:30] LABS: CREATININE 2.7 mg/dL (0.60-1.30); POTASSIUM 5.6 mmol/L (3.5-5.1)
[2024-09-17 06:39] LABS: HEMATOCRIT 33.6 % (41-53); HEMOGLOBIN 10.9 g/dL (13.5-17.5); MEAN CORPUSCULAR HEMOGLOBIN 30.7 pg (26.0-34.0); MEAN CORPUSCULAR HGB CONC 32.4 G/dL (31.0-37.0); MEAN CORPUSCULAR VOLUME 95 fL (80-100); PLATELET COUNT (AUTO) 154 K/uL (150-450); RED BLOOD CELL COUNT(AUTO) 3.55 MIL/uL (4.50-5.90); RED CELL DISTRIBUTION WIDTH 23.5 % (11.5-14.5)
[2024-09-17] MEDS: VANCOMYCIN 500 MG/WATER(PEG) 100 ML IV SCH (08:16)
[2024-09-17] MEDS: HYDROCORTISONE SOD SUCC 100 MG/2 ML VIAL IVP SCH (08:17)
[2024-09-17 08:18] LABS: BAND NEUTROPHILS % (MANUAL) 6 % (0-5); LYMPHOCYTES % (MANUAL) 3 % (22-44); MONOCYTES % (MANUAL) 2 % (2-9); SEGMENTED NEUTROPHILS % 89 % (40-70); TOTAL CELLS COUNTED 100
[2024-09-17 08:20] LABS: RBC MORPHOLOGY COMMENT ABNORMAL RBC MORPH
[2024-09-17 08:21] LABS: WHITE BLOOD COUNT (AUTO) 12.8 K/uL (4.5-11.0)
[2024-09-17 12:16] LABS: ABG BASE EXCESS -7.7 mmol/L (-2.0-3.0); ABG CARBOXYHEMOGLOBIN 0.6 % (0.5-1.5); ABG HCO3 18.5 mmol/L (21.0-28.0); ABG METHEMOGLOBIN 0.2 % (0.0-1.5); ABG OXYGEN CONTENT 20.2 mL/dL (15.0-23.0); ABG OXYGEN SATURATION 99.9 % (94.0-98.0); ABG OXYHEMOGLOBIN 99.1 % (94.0-98.0); ABG PCO2 42 mmHg (32.0-48.0); ABG PH 7.276 (7.350-7.450); ABG TOTAL HEMOGLOBIN 13.6 G/dL (13.5-17.5); SOURCE, BLOOD GAS ARTERIAL; TEMPERATURE, FAHRENHEIT, BG 96.5 FAHREN (96.0-98.6)
[2024-09-17 12:18] LABS: PO2, ARTERIAL BG 458.9 mmHg (83.0-108.0)
[2024-09-17 12:19] LABS: ABG A-A DIFF O2 215.1 mmHg (10-20.0); O2 DEVICE,BLOOD GAS VENTILATOR (ROOM AIR); SITE, BLOOD GAS LEFT BRACHIAL
[2024-09-17 12:20] LABS: VT, ABG 430 ml
[2024-09-17 12:21] LABS: PEEP,BG 8 cm H2O; SPONTANEOUS VT, BG 446 ml
[2024-09-17 14:28] LABS: CREATININE,URINE RANDOM 88.9 mg/dL (30.0-125.0)
[2024-09-17 17:00] LABS: GLUCOMETER DEV NAME(LOC) ICUN.5; GLUCOSE,POINT OF CARE 98 MG/DL (70-110)
[2024-09-17] MEDS: SODIUM BICARBONATE 75 MEQ in DEXTROSE 5%-WATER 1,000 ML IV SCH (17:40)
[2024-09-17] MEDS: SODIUM ZIRCONIUM CYCLOSILICATE 5 GM POWDER PACKET PO ONE (17:41)
[2024-09-17 20:05] LABS: GLUCOMETER DEV NAME(LOC) ICU.S6; GLUCOSE,POINT OF CARE 106 MG/DL (70-110)
[2024-09-18] VITALS (15 sets, daily range): BP systolic 105–139; BP diastolic 51–65; PULSE 48–88; RESP 23–29; TEMP 97.4–100.2; O2SAT 100
[2024-09-18 00:36] LABS: GLUCOMETER DEV NAME(LOC) ICUN.5; GLUCOSE,POINT OF CARE 116 MG/DL (70-110)
[2024-09-18 05:16] LABS: GLUCOMETER DEV NAME(LOC) ICU.S6; GLUCOSE,POINT OF CARE 108 MG/DL (70-110)
[2024-09-18 05:52] LABS: BASOPHILS % (AUTO) 0.1 % (0.0-2.0); EOSINOPHILS % (AUTO) 0 % (1.0-6.0); HEMATOCRIT 31.4 % (41-53); HEMOGLOBIN 10.5 g/dL (13.5-17.5); LYMPHOCYTES # (AUTO) 0.4 K/uL (1.0-4.8); LYMPHOCYTES % (AUTO) 3.6 % (22.0-44.0); MEAN CORPUSCULAR HEMOGLOBIN 30.9 pg (26.0-34.0); MEAN CORPUSCULAR HGB CONC 33.3 G/dL (31.0-37.0); MEAN CORPUSCULAR VOLUME 93 fL (80-100); MONOCYTES # (AUTO) 0.2 K/uL (0.1-1.0); MONOCYTES % (AUTO) 2.2 % (2.0-9.0); NEUTROPHILS # (AUTO) 9.3 K/uL (1.8-7.7); PLATELET COUNT (AUTO) 106 K/uL (150-450); RED BLOOD CELL COUNT(AUTO) 3.38 MIL/uL (4.50-5.90); RED CELL DISTRIBUTION WIDTH 24.4 % (11.5-14.5); WHITE BLOOD COUNT (AUTO) 9.9 K/uL (4.5-11.0)
[2024-09-18 06:02] LABS: NEUTROPHILS % (AUTO) 94.1 % (40.0-70.0)
[2024-09-18 06:07] LABS: CALCIUM, TOTAL 7.9 mg/dL (8.8-10.5); CREATININE 2.61 mg/dL (0.60-1.30); POTASSIUM 5.3 mmol/L (3.5-5.1)
[2024-09-18 07:18] LABS: RBC MORPHOLOGY COMMENT ABNORMAL RBC MORPH
[2024-09-18 11:07] LABS: ALBUMIN/CREATININE RATIO 112 mg/g creat (0-29); CREATININE, URINE (mALB) 85.8 mg/dL (Not Estab.)
[2024-09-18 13:41] LABS: GLUCOMETER DEV NAME(LOC) ICU.S6; GLUCOSE,POINT OF CARE 106 MG/DL (70-110)
[2024-09-18] MEDS: DEXMEDETOMIDINE 400 MCG/NS 100 ML IV PRN (14:36)
[2024-09-18 18:06] LABS: ALBUMIN URINE (ELP) Note: %; TOTAL PROTEIN URINE 61.2 mg/dL (Not Estab.)
[2024-09-18 18:41] LABS: GLUCOMETER DEV NAME(LOC) ICU.S6; GLUCOSE,POINT OF CARE 96 MG/DL (70-110)
[2024-09-19] VITALS (8 sets, daily range): BP systolic 117–156; BP diastolic 51–76; PULSE 46–74; RESP 24; TEMP 97–99.2; O2SAT 100
[2024-09-19] MEDS ORDERED: SODIUM CHLORIDE 0.9% 500 ML IV ONE (02:22)
[2024-09-19 04:16] LABS: GLUCOMETER DEV NAME(LOC) ICUN.5; GLUCOSE,POINT OF CARE 104 MG/DL (70-110)
[2024-09-19 05:47] LABS: CALCIUM, TOTAL 7.9 mg/dL (8.8-10.5); CREATININE 2.03 mg/dL (0.60-1.30); POTASSIUM 4.1 mmol/L (3.5-5.1); VANCOMYCIN,RANDOM 19.6 mcg/mL (25.0-50.0)
[2024-09-19 06:26] LABS: MAGNESIUM 2.1 mg/dL (1.80-2.40); PHOSPHORUS 4.9 mg/dL (2.5-4.9)
[2024-09-19 06:35] LABS: EOSINOPHILS % (AUTO) 0.1 % (1.0-6.0); HEMOGLOBIN 8.9 g/dL (13.5-17.5); LYMPHOCYTES # (AUTO) 0.5 K/uL (1.0-4.8); LYMPHOCYTES % (AUTO) 6.8 % (22.0-44.0); MEAN CORPUSCULAR HEMOGLOBIN 31.4 pg (26.0-34.0); MEAN CORPUSCULAR HGB CONC 34.1 G/dL (31.0-37.0); MEAN CORPUSCULAR VOLUME 92 fL (80-100); MONOCYTES # (AUTO) 0.2 K/uL (0.1-1.0); NEUTROPHILS # (AUTO) 6.7 K/uL (1.8-7.7); RED BLOOD CELL COUNT(AUTO) 2.83 MIL/uL (4.50-5.90); RED CELL DISTRIBUTION WIDTH 24.2 % (11.5-14.5); WHITE BLOOD COUNT (AUTO) 7.4 K/uL (4.5-11.0)
[2024-09-19 07:56] LABS: NEUTROPHILS % (AUTO) 90.1 % (40.0-70.0)
[2024-09-19] MEDS: VANCOMYCIN HCL 500 MG in DEXTROSE 5%-WATER 100 ML IV SCH (08:31)
[2024-09-19 08:32] LABS: PLATELET COUNT (AUTO) 82 K/uL (150-450)
[2024-09-19 12:01] LABS: GLUCOMETER DEV NAME(LOC) ICUN.5; GLUCOSE,POINT OF CARE 89 MG/DL (70-110)
[2024-09-19 17:26] LABS: GLUCOMETER DEV NAME(LOC) ICUN.5; GLUCOSE,POINT OF CARE 88 MG/DL (70-110)
[2024-09-20 14:08] LABS: MYOGLOBIN URINE <2 ng/mL (0-13)
== END 2024-09-19 13:25 | disposition short-term general hospital (02) | DRG 871 ==
LOC: EMS 08:33 → UNDOADMIN 10:40 → EDH 10:40 → 5S 16:20 → ICU 19:41
PROVIDERS: ADMIT Internal Medicine; ATTEND Internal Medicine
PROC: 5A09357 Assistance with Respiratory Ventilation, Less than 24 Consecutive Hours, Continuous Positive Airway Pressure (ICD-10-PCS; 2024-09-15)
PROC: 0BH17EZ Insertion of Endotracheal Airway into Trachea, Via Natural or Artificial Opening (ICD-10-PCS; principal; 2024-09-16)
PROC: 05HY33Z Insertion of Infusion Device into Upper Vein, Percutaneous Approach (ICD-10-PCS; 2024-09-16)
PROC: 5A1945Z Respiratory Ventilation, 24-96 Consecutive Hours (ICD-10-PCS; 2024-09-16)
DX: A41.9 Sepsis, unspecified organism (principal); G92.8 Other toxic encephalopathy; J96.01 Acute respiratory failure with hypoxia; J96.02 Acute respiratory failure with hypercapnia; R65.21 Severe sepsis with septic shock; D61.818 Other pancytopenia; N17.9 Acute kidney failure, unspecified; E87.0 Hyperosmolality and hypernatremia; E44.0 Moderate protein-calorie malnutrition; J44.1 Chronic obstructive pulmonary disease with (acute) exacerbation; E87.20 Acidosis, unspecified; J44.0 Chronic obstructive pulmonary disease with (acute) lower respiratory infection; R62.7 Adult failure to thrive; D63.8 Anemia in other chronic diseases classified elsewhere; F20.9 Schizophrenia, unspecified; E87.5 Hyperkalemia; E16.2 Hypoglycemia, unspecified; F03.90 Unspecified dementia, unspecified severity, without behavioral disturbance, psychotic disturbance, mood disturbance, and anxiety; F17.200 Nicotine dependence, unspecified, uncomplicated; I10 Essential (primary) hypertension; Z79.899 Other long term (current) drug therapy; K21.9 Gastro-esophageal reflux disease without esophagitis; Z68.20 Body mass index [BMI] 20.0-20.9, adult
CPT/HCPCS: 36600; 70450; 71045; 71250; 72192; 74150; 76770; 80048; 80053; 80202; 81001; 82043; 82140; 82533; 82550; 82570; 82805; 82962; 83605; 83735; 83874; 84100; 84156; 84166; 84300; 84443; 84484; 85025; 87040; 87070; 87077; 87081; 87086; 87186; 93005; 94002; 94003; 94660; 99285; J1265; J1644; J1720; J2185; J2310; J2470; J2543; J2704; J3010; J3370; J3480; J3490; J7040; J7042; J7050; J7060; J7120; 36415-L1; 36415-TC